=== PATIENT | female | born 1995 | race Caucasian/White ===

== ENCOUNTER → 2018-04-18 | Outpatient (CLI) | payer BC ==
--- NOTE | 2018-04-19 01:54 | US ---
EXAMINATION TYPE: US pelvic complete DATE OF EXAM: 04/18/2018 COMPARISON: None CLINICAL HISTORY: 22-year-old female N91.1 Secondary amenorrhea. TECHNIQUE: Transabdominal sonographic images of the pelvis were acquired. Date of LMP: 2 years ago, FINDINGS: EXAM MEASUREMENTS: Uterus: 6.7 x 1.8 x 3.1 cm Endometrial Stripe: 0.4 cm Right Ovary: 2.9 x1.3 x 3.3 cm Left Ovary: 2.9 x 2.2 x 1.7 cm 1. Uterus: Anteverted wnl 2. Endometrium: wnl 3. Right Ovary: wnl with follicular change 4. Left Ovary: wnl with follicular change. 5. Bilateral Adnexa: wnl 6. Posterior cul-de-sac: wnl IMPRESSION: Unremarkable transabdominal sonographic examination of the pelvis. Endometrial stripe measures 4 mm.
== END ==
LOC: RADUSWWP 16:21
PROVIDERS: ATTEND Internal Medicine
DX: N91.1 Secondary amenorrhea (principal)
CPT/HCPCS: 76856

== ENCOUNTER 2019-07-10 04:05 | Emergency (ER) | payer OTHER, BC ==
[2019-07-10] MEDS ORDERED: ACETAMINOPHEN TAB 325 MG TAB PO STA (04:46)
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
--- NOTE | 2019-07-10 05:12 | XR ---
EXAMINATION TYPE: XR hand complete RT DATE OF EXAM: 07/10/2019 COMPARISON: NONE HISTORY: Pain TECHNIQUE: 3 views FINDINGS: Metacarpals are intact. I see no fracture nor dislocation. Joint spaces are normal. There a re no erosions. IMPRESSION: Negative right hand exam.
[2019-07-10 05:54] VITALS: BP 133/70; PULSE 82; RESP 18; TEMP 97.9
== END 2019-07-10 05:54 | disposition home or self-care (01) ==
LOC: EC 04:05
DX: S60.221A Contusion of right hand, initial encounter (principal); F41.9 Anxiety disorder, unspecified; F32.9 Major depressive disorder, single episode, unspecified; Z79.3 Long term (current) use of hormonal contraceptives; Z79.899 Other long term (current) drug therapy; Z88.0 Allergy status to penicillin; V89.2XXA Person injured in unspecified motor-vehicle accident, traffic, initial encounter; Y92.410 Unspecified street and highway as the place of occurrence of the external cause
CPT/HCPCS: 99284

== ENCOUNTER → 2022-10-21 | Outpatient (CLI) | payer BC ==
--- NOTE | 2022-10-21 16:27 | FL ---
EXAMINATION TYPE: FL UGI air w small bowel DATE OF EXAM: 10/21/2022 9:58 AM COMPARISON: NONE CLINICAL HISTORY: DIARRHEA, BLOATING, BURPING, GAS, ABD PAIN, GERD A total of 80 seconds of fluoroscopic time was utilized during procedure and 20 images obtained. Preliminary film of the abdomen reveals no definite abnormality. Upper GI examination was performed u tilizing the air contrast technique. Barium and effervescent crystals were swallowed without difficu lty or delay. Esophageal peristalsis and motility are within normal limits. There is no evidence fo r hiatal hernia or esophagitis. Mild gastroesophageal reflux seen during the course of the study. Th e stomach has a normal size, shape and position. No gastric filling defects are seen. No gastric ulc er craters are seen. The duodenal bulb and sweep appear to be grossly unremarkable without evidence for filling defect or ulcer crater. Small bowel follow through is performed with rapid transit time of 30 minutes. The small bowel loops are of normal caliber. Prominent jejunal folds are noted which could reflect sprue (celiac disease) o r nontropical sprue. The terminal ileum is unremarkable. IMPRESSION: 1.Prominent jejunal folds are noted which could reflect sprue (celiac disease) or nontropical sprue. 2. Rapid transit time 30 minutes. 3. Mild gastroesophageal reflux.
== END | disposition home or self-care (01) ==
LOC: RADFLMAIN 07:58
PROVIDERS: ATTEND Internal Medicine Gastroenterology
DX: K21.9 Gastro-esophageal reflux disease without esophagitis (principal); R63.4 Abnormal weight loss
CPT/HCPCS: 74240; 74248